=== PATIENT | male | born 1970 | race Caucasian/White ===

== ENCOUNTER 2019-02-06 08:36 | Observation (INO) | payer SELFPAY ==
[2019-02-06] MEDS ORDERED: Aspirin 325 MG TAB ONE (08:48)
[2019-02-06 09:12] LABS: #Basophils 0.1 thou/uL (0.0-0.2); #Eosinphils 0.4 thou/uL (0.0-0.7); #Lymphocytes 1.8 thou/uL (1.20-3.40); #Monocytes 0.4 thou/uL (0.11-0.59); #Neutrophils 4.6 thou/uL (1.40-6.50); %Basophils 0.8 % (0.0-1.0); %Eosinophils 5.8 % (0.0-10.0); %Lymphocytes 24.3 % (21.0-51.0); %Monocytes 5.8 % (0.0-10.0); %Neutrophils 63.3 % (42.0-75.0); Hemoglobin 15.7 g/dL (14.0-18.0); Mean Corpuscular HGB CONC 34.9 g/dL (32.0-36.0); Mean Corpuscular Hemoglobin 30.4 pg (27.0-31.0); Mean Platelet Volume 5.8 fL (7.4-10.4); Platelet Count 165 thou/uL (130-400); RBC Distribution Width 12.5 % (11.5-14.5); Red Blood Cell (RBC) Count 5.18 mill/uL (4.70-6.10); White Blood Cell (WBC) Count 7.3 thou/uL (4.8-10.8)
[2019-02-06 09:38] LABS: ALT (SGPT) 85 U/L (8-55); AST (SGOT) 66 U/L (5-34); Albumin 4.2 g/dL (3.5-5.0); Alkaline Phosphatase 90 U/L (40-110); Anion Gap 12 mmol/L (10-20); BUN (Urea Nitrogen) 11 mg/dL (8.9-20.6); CK (CPK) 321 U/L (30-200); Calc. Creatinine Clearance 0 mL/min (70-130); Calcium 9.4 mg/dL (7.8-10.44); Carbon Dioxide 26 mmol/L (22-29); Chloride 106 mmol/L (98-107); Estimated GFR-MDRD 63; Globulin 3.1 g/dL (2.4-3.5); Glucose 131 mg/dL (70-105); Lipase 20 U/L (8-78); Potassium 4.7 mmol/L (3.5-5.1); Protein, Total 7.3 g/dL (6.0-8.3); Sodium 139 mmol/L (136-145)
--- NOTE | 2019-02-06 10:03 | RAD ---
XR Chest 1 View Portable History: Chest pain Comparison: None. Findings: Lungs are clear. No pneumothorax or effusion. Cardiac silhouette and mediastinal contours a re within normal limits. Impression: No acute intrathoracic abnormality.
--- NOTE | 2019-02-06 10:58 | PDOC.FPRHP ---
- History of Present Illness Chief Complaint: Chest Pain History of Present Illness: Pt is a 48 year old M with past medical history of GERD who called EMS while he was driving and was transported to the hospital due to chest pain. He said he felt dizzy, cotton mouth, and pain over the spine in the thoracic region that radiated to shoulders and sternum that 6:30. He said the pain was achy and tight. Hands were tingling and numb. No diaphoresis, but he experienced nausea. No prior events. Intermittent pain that would last for about 5 minutes. He says he is just having pain in his head now. No recent trauma. Pt was found to have umbilical hernia. Reports he has pain every now and then in the area. Reports pain comes and goes. GI: Dr. Arcos. Recommend Colonoscopy & EGD for 100 lb weight gain over 1 year. Last doctor was gastro seen a year ago. His last clearance was March of 2017. He never had his liver enzymes evaluated. States never knowing of any other liver issus. ED Course: EMS: 3 nitro and paced, BP:198/114 ED: BP-128/82, ASA 324, CXR: NAF, Trop: < 0.01, CPK:321, AST: 66, ALT: 85 - History PMHx: GERD PSHx: Hernia, Appendectomy FHx: Mom: Vertigo, HTN, DM Dad: DM, HTN, Lung Cancer Social: Former smoker, quit 4-5 years ago. Smoked for 20 years 1PPD. Drinks occasionally at social events. Recreational drugs- none Meds: Protonix Allergy: Anesthesia that starts with Z - Review of Systems General: denies: fever/chills Eyes: denies: vision changes ENT: denies: nasal congestion Respiratory: denies: cough, shortness of breath Cardiovascular: reports: chest pain Gastrointestinal: reports: nausea. denies: vomiting, diarrhea, constipation Skin: denies: rashes Musculoskeletal: reports: pain Neurological: reports: numbness, other (headache) - Vital signs BP: 150/80 HR: 73 RR: 16 Tmax: 98.3 Pox: 99% on RA Wt: 128.82 kg - Physical Exam Constitutional: NAD, awake, alert and oriented HEENT: normocephalic and atraumatic, PERRLA, conjunctiva clear, no scleral icterus Neck: supple, trachea midline Heart: RRR, normal S1/S2 Lungs: CTAB Abdomen: soft, bowel sounds present -Abdomen: TTP around the umbilicus Musculoskeletal: normal structure, normal tone, ROM grossly normal Neurological: no focal deficit, CN II-XII intact Skin: no rash/lesions, no jaundice Heme/Lymphatic: no unusual bruising or bleeding Psychiatric: normal mood and affect FMR H&P: Results - Labs Result Diagrams: 02/06/19 08:52 02/07/19 04:18 Lab results: WBC 7.3 thou/uL (4.8-10.8) 02/06/19 08:52 Hgb 15.7 g/dL (14.0-18.0) 02/06/19 08:52 Hct 45.0 % (42.0-52.0) 02/06/19 08:52 MCV 87.0 fL (78.0-98.0) 02/06/19 08:52 Plt Count 165 thou/uL (130-400) 02/06/19 08:52 Neutrophils % 63.3 % (42.0-75.0) 02/06/19 08:52 Sodium 139 mmol/L (136-145) 02/06/19 08:52 Potassium 4.7 mmol/L (3.5-5.1) 02/06/19 08:52 Chloride 106 mmol/L (98-107) 02/06/19 08:52 Carbon Dioxide 26 mmol/L (22-29) 02/06/19 08:52 BUN 11 mg/dL (8.9-20.6) 02/06/19 08:52 Creatinine 1.24 mg/dL (0.7-1.3) 02/06/19 08:52 Glucose 131 mg/dL (70-105) H 02/06/19 08:52 Calcium 9.4 mg/dL (7.8-10.44) 02/06/19 08:52 Total Bilirubin 1.0 mg/dL (0.2-1.2) 02/06/19 08:52 AST 66 U/L (5-34) H 02/06/19 08:52 ALT 85 U/L (8-55) H 02/06/19 08:52 Alkaline Phosphatase 90 U/L (40-110) 02/06/19 08:52 Creatine Kinase 321 U/L (30-200) H 02/06/19 08:52 Serum Total Protein 7.3 g/dL (6.0-8.3) 02/06/19 08:52 Albumin 4.2 g/dL (3.5-5.0) 02/06/19 08:52 Lipase 20 U/L (8-78) 02/06/19 08:52 - EKG Interpretation EKG: EKG: T wave inversion in III & AVF, rest is normal - Radiology Interpretation Chest x-ray Status: image reviewed by me, report reviewed by me (No acute intrathoracic abnormality) FMR H&P: A/P - Problem List (1) Chest pain Status: Acute Code(s): R07.9 - CHEST PAIN, UNSPECIFIED (2) Transaminitis Status: Acute Code(s): R74.0 - NONSPEC ELEV OF LEVELS OF TRANSAMNS & LACTIC ACID DEHYDRGNSE (3) Hypertension Status: Acute Code(s): I10 - ESSENTIAL (PRIMARY) HYPERTENSION - Plan Pt is a 48 year old M with past medical history of GERD who called EMS while he was driving and was transported to the hospital due to chest pain. 1. Atypical Chest Pain Pain is in the back, resolves with nitro, not on exertion (1/3) * EKG: T wave inversion in III & AVF, rest is normal * Ordered Lipid, TSH, Mag * Stress ordered, npo at midnight * CTA of chest due to pain in back radiating to front, paresthesias in hands, and severe increase in bp. Possible concern for dissection. * Nitro on prn * ASA 324 ordered 2. Transaminitis AST: 66, ALT: 85 * Hepatitis Ordered * recommend patient follow up outpatient for further testing. Will need US 3. HTN urgency, Resolved BP initially 198/114. Has since come down with nitro medication * BP currently: 138/80 * Will monitor 4. Umbilical Hernia No strangulation of bowel, reducible * Will monitor for now * Possible source of pain. May warrant further testing if stress is normal and pain persist. 5. GERD * Will restart on protonix PCP: CC Diet: HHLSo, NPO @ midnight Lines: Peripheral, SL DVT PPx: Lovenox Code Status: Full Dispo: Tele obs, LOS < 48H. Will get stress and CTA then evaluate based on results. FMR H&P: Upper Level - Pertinent history I was present with the internal control consultant physicians Dr. Jasmyne Ko and Dr. Vance. I asked questions as needed and edited the above hpi. See above for details - Pertinent findings Pt resting comfortably in bed. Small umbilical hernia noted. No pain on palpation during the exam. No redness noted. Reducible. Cardio: RRR, no murmurs or gallops. - Plan Date/Time: 02/06/19 1054 I, Rhys France PGY-3, have evaluated this patient and agree with findings/ plan as outlined by internal control consultant resident. Pertinent changes/additions are listed here. I made edits to the plan as needed. See above for detailed plan. At this time we will admit for chest pain rule out. Pt pain atypical in nature. There are some concerns in patient hx and description of pain. Will get CTA to rule out dissection. Will get stress in AM tmrw. Addendum - Attending - Attending Attestation Date/Time: 02/07/19 1933 I personally evaluated the patient and discussed the management with Dr. Ko I agree with the History, Examination, Assessment and Plan documented above with any addition or exceptions noted below. 48 yo male presents for evaluation of back pain radiating to chest. Patient reports significant back pain between shoulders. Radiated to chest, substernal. Associated with numbness and tingling to arms and hands. Also associated with nausea. Discribed at tight. Called EMS. Noted to have severe range BP once EMS arrived. Provided nitro x 3 and also required nitro paste to chest. Pain improved as well as BP. Admit for ACS rule out. Atypical chest pain but history still concerning. Stress in AM. ASA. Trend labs. Episode of HTN urgency. Treated in field. Patient unsure if he has HTN. Treat overnight as needed. Start oral if continues to need IV medication. Avoid BB due to AM stress. Transaminitis. Trend. Likely fatty liver. Reports some alcohol use. Rule out hepatitis. GARRET montes in AM. Armani
[2019-02-06] MEDS ORDERED: Nitroglycerin 0.4 MG TAB (25 Tab Bottle) PO PRN (11:26)
[2019-02-06] MEDS ORDERED: Ondansetron ODT 4 MG TAB PO PRN (11:26)
[2019-02-06] MEDS ORDERED: Ondansetron PF 4 MG/2 ML Vial IVP PRN (11:26)
[2019-02-06] MEDS ORDERED: Senokot S 8.6-50 MG TAB PO PRN (11:26)
[2019-02-06] MEDS ORDERED: Acetaminophen 325 MG TAB PO PRN (11:26)
[2019-02-06 12:41] LABS: Cardiac Risk 3.6 (Less than 4.5)
[2019-02-06 12:44] LABS: Troponin I Less than 0.010 ng/mL (< 0.028)
[2019-02-06 12:59] LABS: HBSAB Concentration 0.93 mIU/mL; HBSAg Index 0.29 S/CO (0-0.99); Hep B Surf AB Non-Reactive (NonReactive); Hep B Surf Ag Non-Reactive S/CO (NonReactive); Hep C IgG Ab Non-Reactive (NonReactive); Hep C Index 0.04 S/CO (0-0.79); Thyroid Stimulating Hormone 2.5611 uIU/mL (0.35-4.94)
--- NOTE | 2019-02-06 14:05 | CT ---
CT CHEST WITH IV CONTRAST AND 3D POSTPROCESSING CT ABDOMEN WITH IV CONTRAST AND 3D POSTPROCESSING: HISTORY: A 48-year-old male with back pain radiating to the front, chest pain, shortness of breath, and dizzin ess. FINDINGS: The thoracoabdominal aorta is well opacified without aneurysm or dissection. No pleural or pericardi al effusions are seen. No pneumothoraces, focal areas of consolidation, or lung masses are identifie d. There are dependent changes in the lung bases. No calcified gallstones are noted. There is fatty infiltration of the liver. The pancreas, spleen, adrenal glands, and left kidney are unremarkable. There is a 1 cm low-density lesion in the right re nal cortex, likely cyst. No free air, free fluid, or lymphadenopathy is seen in the abdomen. There are degenerative changes in the spine. There is good flow in the celiac axis, SMA, ORIN, and both merlin al arteries. IMPRESSION: No evidence of aortic dissection. POS: MICHAEL
[2019-02-06 15:22] LABS: Troponin I Less than 0.010 ng/mL (< 0.028)
[2019-02-06] MEDS ORDERED: hydrALAZINE 10 MG TAB PO SCH (20:00)
[2019-02-06] MEDS ORDERED: Famotidine 20 MG TAB PO SCH (21:00)
[2019-02-06] MEDS ORDERED: hydrALAZINE 10 MG TAB PO PRN (21:25)
[2019-02-07 04:58] LABS: ALT (SGPT) 79 U/L (8-55); AST (SGOT) 63 U/L (5-34); Albumin 3.9 g/dL (3.5-5.0); Alkaline Phosphatase 78 U/L (40-110); Anion Gap 12 mmol/L (10-20); BUN (Urea Nitrogen) 11 mg/dL (8.9-20.6); Calc. Creatinine Clearance 151 mL/min (70-130); Calcium 9.2 mg/dL (7.8-10.44); Carbon Dioxide 24 mmol/L (22-29); Chloride 108 mmol/L (98-107); Estimated GFR-MDRD 68; Glucose 113 mg/dL (70-105); Potassium 4.4 mmol/L (3.5-5.1); Protein, Total 6.9 g/dL (6.0-8.3); Sodium 140 mmol/L (136-145)
--- NOTE | 2019-02-07 05:54 | PDOC.FM ---
- Subjective Subjective: He is having no pain this morning. He says he has been eating and drinking well. He has not been able to sleep just due to being in a new environment. He is getting up and walking around. - Objective MAR Reviewed: Yes Vital Signs & Weight: Vital Signs (12 hours) Temp Pulse Resp BP BP Pulse Ox 02/07/19 03:54 98 F 68 22 H 136/77 96 02/06/19 23:05 98.7 F 73 15 122/67 97 02/06/19 20:01 65 144/95 H 02/06/19 19:27 191/100 H Weight Weight 134.173 kg I&O: 02/05/19 02/06/19 02/07/19 06:59 06:59 06:59 Intake Total 720 Output Total 450 Balance 270 Result Diagrams: 02/06/19 08:52 02/07/19 04:18 Phys Exam - Physical Examination Constitutional: NAD HEENT: PERRLA, moist MMs, sclera anicteric Neck: supple, full ROM Respiratory: clear to auscultation bilateral Cardiovascular: RRR, no significant murmur Gastrointestinal: soft, positive bowel sounds TTP over the umbilicus due to hernia present Musculoskeletal: no edema, pulses present Neurological: moves all 4 limbs Psychiatric: normal affect Skin: no rash, normal turgor Dx/Plan (1) Chest pain Code(s): R07.9 - CHEST PAIN, UNSPECIFIED Status: Acute (2) Transaminitis Code(s): R74.0 - NONSPEC ELEV OF LEVELS OF TRANSAMNS & LACTIC ACID DEHYDRGNSE Status: Acute (3) Hypertension Code(s): I10 - ESSENTIAL (PRIMARY) HYPERTENSION Status: Acute (4) Hypertensive urgency Code(s): I16.0 - HYPERTENSIVE URGENCY Status: Acute - Plan Plan: Pt is a 48 year old M with past medical history of GERD who called EMS while he was driving and was transported to the hospital due to chest pain. 1. Atypical Chest Pain Pain is in the back, resolves with nitro, not on exertion (1/3) * EKG: T wave inversion in III & AVF, rest is normal * Trop: < 0.010 x2 * Mag, Lipid, TSH: wnl * Stress today * CT Dissection: due to pain in back radiating to front, paresthesias in hands, and severe increase in bp. Possible concern for dissection. * Findings: Neg * Nitro on prn * ASA 81 * ASCVD: 3% 2. Transaminitis AST: 66, ALT: 85 * Hepatitis Panel: Neg * recommend patient follow up outpatient for further testing. Will need US 3. HTN urgency, Resolved BP initially 198/114. Has since come down with nitro medication * BP currently: 122/67 * Elevated BP last night * Hydralazine 10 mg IV given * Started on Lisinopril 5 mg 4. Umbilical Hernia No strangulation of bowel, reducible * Will monitor for now * Possible source of pain. May warrant further testing if stress is normal and pain persist. 5. GERD * Will restart on protonix 6. Elevated blood sugars Endorses increase thirst and urination * Will get A1C this morning. PCP: LM Diet: NPO Lines: Peripheral, SL DVT PPx: Lovenox Code Status: Full Dispo: Tele obs, LOS < 48H. Will get stress then evaluate based on results. Addendum - Attending - Attending Attestation Date/Time: 02/07/19 0287 I personally evaluated the patient and discussed the management with the team. I agree with the History, Examination, Assessment and Plan documented above with any addition or exceptions noted below. Plan for sono today prior to d/c. Stress was negative. We discuss the need for weight loss.
[2019-02-07] MEDS ORDERED: Lisinopril 5 MG TAB PO SCH (09:00)
[2019-02-07] MEDS ORDERED: Aspirin 325 mg Enteric Coated Tablet PO SCH (09:00)
[2019-02-07] MEDS ORDERED: Enoxaparin Sodium 40 MG/0.4 ML SYRINGE SC SCH (09:00)
--- NOTE | 2019-02-07 10:03 | NM ---
EXAM: CARDIAC SPECT HISTORY: Chest pain TECHNIQUE: A myocardial perfusion scan was performed using the single isotope 2 day protocol with carolyn hnetium 99m sestamibi. [31 mCi] was injected intravenously for the rest exam followed by 32 mCifor the stress study. Exercise stress was monitored and interpreted by Nabor Mcneil, nurse practitioner FINDINGS: Homogeneous tracer distribution is seen in the myocardial segments on stress and rest image s without fixed or reversible defects. Gated SPECT LVEF: 63% Wall motion exam: Normal IMPRESSION: Normal myocardial perfusion scan
[2019-02-07 10:05] LABS: Hemoglobin A1c 5.7 % (4.0-6.0)
[2019-02-07 15:13] VITALS: BMI 42.4
[2019-02-07 15:18] VITALS: BP 170/95; TEMP 98.3
--- NOTE | 2019-02-07 16:24 | ULT ---
ULTRASOUND ABDOMEN COMPLETE: DATE: 02/07/2019 HISTORY: 48-year-old male with transaminitis FINDINGS: Gallbladder: Normal wall thickness. No evidence of pericholecystic fluid, gallstones, or sludge. Liver: Diffusely increased echogenicity, consistent with fatty liver. Enlarged. Common duct caliber: 4 mm. Bilateral kidneys: No hydronephrosis. Shank Piece Tacker has measured a 4 x 3.5 cm partially exophytic mass protruding from the midpole of the left kidney with echogenicity similar to that of surrounding normal renal parenchyma. 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 There is a tiny 1 cm cyst at the right renal midpole parenchyma. Pancreas: Nonspecific sonographic appearance. Abdominal aorta: Not visualized. Inferior vena cava: Poorly visualized. Spleen: 15 x 6 x 6 cm with lobular hilum. IMPRESSION: 1) Hepatic steatosis. 2) hepatomegaly. 3) mild or borderline splenomegaly.
[2019-02-08] MEDS ORDERED: Lisinopril 20 MG TAB PO SCH (09:00)
[2019-02-08] MEDS ORDERED: Aspirin 81 mg Enteric Coated Tablet PO SCH (09:00)
--- NOTE | 2019-02-08 10:51 | DIS ---
DATE OF ADMISSION: 02/06/2019 DATE OF DISCHARGE: 02/07/2019 ADMITTING ATTENDING: Dr. Caroline Rea. DISCHARGE ATTENDING: Dr. Piter Puga. CONSULTS: None. PROCEDURES: Chest x-ray showed no acute intrathoracic abnormality. CT dissection protocol on 02/06/2019, no evidence of aortic dissection. Stress on 02/06/2019 showed left ventricular ejection fraction of 63% with a normal myocardial perfusion scan. Ultrasound of the abdomen on 02/07/2019 showed hepatic steatosis, hepatomegaly, and mild to borderline splenomegaly. PRIMARY DIAGNOSIS: Atypical chest pain. SECONDARY DIAGNOSES: Transaminitis, hypertensive urgency, umbilical hernia, gastroesophageal reflux disease, and hypertension. DISCHARGE MEDICATIONS: Lisinopril 20 mg. DISCONTINUED MEDICATION: Aspirin 81 mg. HISTORY OF PRESENT ILLNESS: The patient is a 48-year-old male with past medical history of GERD, who called EMS while he was driving, he was transported to the hospital due to chest pain. He said he felt dizzy, cotton mouth, and pain over the spine and the thoracic region that radiated to the shoulders and the sternum, it started at 6:30 this morning and said the pain was achy and tight, hands were tingling and numb. No diaphoresis, but he experienced nausea. No prior events, intermittent pain that would last for about 5 minutes. He says he is having pain in his head now. No recent trauma. The patient was found to have an umbilical hernia. He reports he has pain every now and then in the area and reports pain comes and goes. His GI doctor is Dr. Arcos. He recommended a colonoscopy and EGD for 100- pound weight gain over one year. Last doctor was gastro, seen a year ago. 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 He has never had liver enzymes evaluated and states never knowing of any other liver issues. In the ED by EMS, he was given 3 nitroglycerin and paste and found to have blood pressure of 198/114. In the ED, his blood pressure had come down to 128/82. He was given aspirin. Chest x-ray and troponins. CPK was 321. AST was 66 and ALT was 85. 1. Atypical chest pain. * Pain is in the back and resolves with nitroglycerin, not on exertion, 1/3 classification. * EKG shows T-wave inversions in III and AVF. Rest was normal. * Troponins less than 0.01 x2. * Mag, lipid and TSH within normal limits. * Stress was negative. * CT, dissection, was negative. * Nitroglycerin was given p.r.n. for pain. * Aspirin was given. * ASCVD risk 3% in 10 years. 2. Transaminitis. * AST 66, ALT 85. * Hepatitis panel negative. * US showed hepatic steatosis. 3. Hypertensive urgency, resolved. * Blood pressure initially 198/114, it has since come down with nitroglycerin medication. * Started on lisinopril 20 mg before discharge. * Required hydralazine IV overnight for elevated blood pressures. 4. Umbilical hernia. * No strangulation or bowel, reducible. We * will monitor. * Possible source of pain may warrant further testing if stress is normal and pain persistent. 5. Gastroesophageal reflux disease. * Restarted on home Protonix. 6. Elevated blood pressures. * Endorses increased thirst and urination. * A1c of 5.7. * Sent home with Metformin 500 mg once daily qhs DISPOSITION: Stable. DISCHARGE INSTRUCTIONS: 1. Location: Home. 2. Diet: Heart healthy, diabetic diet. 3. Activity: As tolerated. 4. Follow up. The patient was given information to establish care with [facility] physicians. Job ID: [id number] MTDD
== END 2019-02-07 19:14 | disposition home or self-care (01) ==
LOC: ERS 08:36 → ERHOLD 10:49 → 2SW 17:28
PROVIDERS: ADMIT Emergency Medicine; ATTEND Emergency Medicine
DX: R07.89 Other chest pain (principal); R74.0 Nonspecific elevation of levels of transaminase and lactic acid dehydrogenase [LDH]; I16.0 Hypertensive urgency; I10 Essential (primary) hypertension; K42.9 Umbilical hernia without obstruction or gangrene; K21.9 Gastro-esophageal reflux disease without esophagitis; R73.9 Hyperglycemia, unspecified; K76.0 Fatty (change of) liver, not elsewhere classified; R16.1 Splenomegaly, not elsewhere classified; Z87.891 Personal history of nicotine dependence; Z79.899 Other long term (current) drug therapy; Z88.5 Allergy status to narcotic agent
CPT/HCPCS: 36415; 71045; 71275; 72191; 74175; 78452; 80053; 80061; 82550; 83036; 83690; 83735; 84443; 84484; 85025; 86706; 86803; 87340; 93005; 93017; 93975; A9500; G0378